=== PATIENT | female | born 2005 | race Native Hawaiian/Other Pacific Islander ===

== ENCOUNTER 2023-03-24 13:32 | Outpatient (CLI) | payer BC ==
--- NOTE | 2023-03-25 20:26 | Ultrasound Report ---
PROCEDURE: OB 1st Trimester w/TV INDICATIONS: POSITIVE TEST OUTSIDE/PRIOR DATING DATA: Last menstrual period (LMP): 01/20/2023. LMP-based estimated date of delivery (NGUYEN): 10/27/2023. First dating scan (date and location): 03/24/2023. Estimated date of delivery (NGUYEN) from first dating scan: 10/26/2023. TECHNIQUE: Real-time scanning was performed of the fetus and maternal pelvic organs, with image documentation. Endovaginal scanning was also performed to better visualize the fetus and maternal ovaries. COMPARISON: None. FINDINGS: Intrauterine gestational sac present. Embryo: There is a single live intrauterine gestation with a crown-rump length of 2.4 cm for a gesta tional age of 9 weeks, 1 day Heart rate: 180 bpm. Other: No perigestational fluid collection. Measurement variability in dating: +/- 4 weeks by LMP, +/- 7 days by mean sac diameter (use before 6 weeks gestation if crown-rump length not able to be measured), +/- 5 days by crown-rump length (6-12 weeks gestation). Maternal organs: Ovaries appear within normal limits. There is a right corpus luteal cyst which cricket ures 1.9 x 2.0 x 1.5 cm and a left ovarian follicle which measures 1.6 cm in diameter. IMPRESSION: Single live intrauterine gestation with a gestational age of 9 weeks 1 day by crown-rump length. Reviewed by: Olivia An MD on 03/25/2023 8:24 PM PST Approved by: Olivia An MD on 03/25/2023 8:24 PM PST Station ID: [id number]
== END 2023-03-24 13:33 | disposition home or self-care (01) ==
LOC: DI 13:32
PROVIDERS: ATTEND Nurse Practitioner
DX: Z34.01 Encounter for supervision of normal first pregnancy, first trimester (principal)

== ENCOUNTER 2023-04-11 14:26 | Outpatient (CLI) | payer BC ==
[2023-04-11 14:52] LABS: BASOPHILS # (AUTO) 0.1 10^3/uL (0.0-0.1); EOSINOPHILS # (AUTO) 0.1 10^3/uL (0.0-0.7); EOSINOPHILS % (AUTO) 1.2 %; HCT - HEMATOCRIT 39.8 % (37.0-47.0); LYMPHOCYTES # (AUTO) 2.8 10^3/uL (1.5-3.5); MEAN CORPUSCULAR HEMOGLOBIN 27.8 pg (27.0-31.0); MEAN CORPUSCULAR HGB CONC 32.7 g/dL (32.0-36.0); MEAN PLATELET VOLUME 9.1 fL (7.9-10.8); MONOCYTES # (AUTO) 0.9 10^3/uL (0.0-1.0); MONOCYTES % (AUTO) 8.2 %; NEUTROPHILS # (AUTO) 7.3 10^3/uL (1.5-6.6); NEUTROPHILS % (AUTO) 64.4 %; PLT - PLATELET COUNT 399 10^3/uL (130-450); RED BLOOD COUNT 4.68 10^6/uL (4.20-5.40); RED CELL DISTRIBUTION WIDTH 13.5 % (12.0-15.0); WHITE BLOOD COUNT 11.3 x10^3/uL (4.8-10.8)
[2023-04-11 16:14] LABS: BILIRUBIN,URINE NEGATIVE (NEGATIVE); GLUCOSE, URINE (UA) NEGATIVE (NEGATIVE); KETONES,URINE (UA) NEGATIVE (NEGATIVE); LEUKOCYTE ESTERASE, URINE NEGATIVE (NEGATIVE); NITRITE,URINE NEGATIVE (NEGATIVE); OCCULT BLOOD,URINE NEGATIVE (NEGATIVE); PH,URINE 6.5 PH (5.0-7.5); PROTEIN,URINE NEGATIVE (NEGATIVE); UROBILINOGEN,URINE 0.2 (NORMAL) E.U./dL (NORMAL)
[2023-04-11 16:51] LABS: CLARITY,URINE HAZY (CLEAR)
[2023-04-11 16:53] LABS: AMORPHOUS SEDIMENT,UR Few /LPF; BACTERIA,URINE Rare /HPF (None Seen); CASTS, URINE 0-2 Fine Granular /LPF; MUCUS,URINE Few Strands; RBC,URINE 0-5 /HPF (0-5); SQUAMOUS EPITHELIAL CELL,UR MOD Squamous (<= Few)
[2023-04-11 16:54] LABS: CRYSTALS,URINE 3-5 Calcium Oxalate /LPF
[2023-04-11 22:38] LABS: CHLAMYDIA TRACHOMATIS DNA NEGATIVE (NEGATIVE); NEISSERIA GONORRHOEAE DNA NEGATIVE (NEGATIVE); TRICHOMONAS VAGINALIS DNA NEGATIVE (NEGATIVE)
[2023-04-12 05:14] LABS: HBsAG SCREEN Negative (Negative); RPR Non Reactive (Non Reactive)
[2023-04-12 06:11] LABS: HCV AB Non Reactive (Non Reactive)
[2023-04-12 07:10] LABS: HIV SCREEN 4TH GENERATION Non Reactive (Non Reactive)
[2023-04-12 09:10] LABS: VARICELLA-ZOSTER AB IGG 1658 index (Immune >165)
== END 2023-04-11 14:27 | disposition home or self-care (01) ==
LOC: LAB 14:26
PROVIDERS: ATTEND Nurse Practitioner
DX: O99.891 Other specified diseases and conditions complicating pregnancy (principal); N30.00 Acute cystitis without hematuria; Z36.89 Encounter for other specified antenatal screening
CPT/HCPCS: 36415; 81001; 85025; 86592; 86762; 86787; 86803; 86850; 86900; 86901; 87086; 87340; 87389; 87491; 87591; 87661

== ENCOUNTER 2023-04-26 11:01 | Outpatient (CLI) | payer BC | END 2023-04-26 11:02 | disposition home or self-care (01) | LOC: LAB 11:01 | PROVIDERS: ATTEND Obstetrics & Gynecology | DX: Z34.00 Encounter for supervision of normal first pregnancy, unspecified trimester (principal) ==

== ENCOUNTER 2023-05-10 08:00 | Outpatient (CLI) | payer BC | END 2023-05-10 23:59 | disposition home or self-care (01) | LOC: LAB.WC 08:00 | PROVIDERS: ATTEND Obstetrics & Gynecology | DX: R30.0 Dysuria (principal) | CPT/HCPCS: 87086 ==

== ENCOUNTER 2023-06-01 23:38 | Emergency (ER) | payer BC ==
[2023-06-01 23:49] VITALS: O2SAT 98
[2023-06-02 00:01] LABS: BILIRUBIN,URINE NEGATIVE (NEGATIVE); GLUCOSE, URINE (UA) NEGATIVE (NEGATIVE); KETONES,URINE (UA) NEGATIVE (NEGATIVE); LEUKOCYTE ESTERASE, URINE MODERATE (NEGATIVE); NITRITE,URINE NEGATIVE (NEGATIVE); OCCULT BLOOD,URINE SMALL (NEGATIVE); PH,URINE 6.5 PH (5.0-7.5); PROTEIN,URINE 30 mg/dL (NEGATIVE); UROBILINOGEN,URINE 0.2 (NORMAL) E.U./dL (NORMAL)
[2023-06-02 00:16] LABS: BACTERIA,URINE Rare /HPF (None Seen); CLARITY,URINE HAZY (CLEAR); SQUAMOUS EPITHELIAL CELL,UR RARE Squamous (<= Few); WBC CLUMPS,URINE PRESENT
--- NOTE | 2023-06-02 01:02 | ED Physician Documentation ---
History of Present Illness - Stated complaint Stated Complaint: - Chief complaint Chief Complaint: UTI - History obtained from History obtained from: Patient - Additonal information Additional information: 18-year-old woman at 19wga presents with isolated dysuria denies fever, back pain, systemic symptoms PD PAST MEDICAL HISTORY - Past Medical History Past Medical History: No - Past Surgical History Past Surgical History: No - Present Medications Home Medications: Ambulatory Orders Medication Instructions Recorded Confirmed Vit No.129/Iron/Folic 1 tab PO DAILY 06/01/23 06/01/23 [ One Daily Tablet] Nitrofurantoin [Macrobid] 100 mg PO BID #10 tab 06/02/23 - Allergies Allergies/Adverse Reactions: Allergies Allergy/AdvReac Type Severity Reaction Status Date / Time No Known Drug Allergies Allergy Verified 06/01/23 23:42 - Social History Does the pt smoke?: No Smoking Status: Never smoker Does the pt drink ETOH?: No Does the pt have substance abuse?: No - Immunizations Immunizations are current?: Yes - POLST Patient has POLST: No PD ED PE NORMAL - Vitals Vital signs reviewed: Yes - General General: Alert and oriented X 3, No acute distress, Well developed/nourished - HEENT HEENT: Atraumatic, PERRL, EOMI, Moist mucous membranes, Pharynx benign - Neck Neck: Supple, no meningeal sign - Abdomen Abdomen: Non tender, Non distended - Back Back: No CVA TTP Results - Vitals Vitals: Vital Signs - 24 hr 06/01/23 23:39 Temperature 36.6 C Heart Rate 82 Respiratory 19 Rate Blood Pressure 106/63 O2 Saturation 98 Oxygen O2 Source Room air - Labs Labs: Laboratory Tests 06/01/23 23:50 Urine Color YELLOW Urine Clarity HAZY Urine pH 6.5 Ur Specific [place] 1.015 Urine Protein 30 H Urine Glucose (UA) NEGATIVE Urine Ketones NEGATIVE Urine Occult Blood SMALL H Urine Nitrite NEGATIVE Urine Bilirubin NEGATIVE Urine Urobilinogen 0.2 (NORMAL) Ur Leukocyte Esterase MODERATE H Urine RBC 6-10 H Urine WBC 11-25 H Urine WBC Clumps PRESENT Ur Squamous Epith Cells RARE Squamous Urine Bacteria Rare Urine Culture Comments INDICATED PD Medical Decision Making - ED course ED course: 18-year-old woman at 19wga presents with isolated dysuria without back pain or any other signs of pyelonephritis. UTI on urinalysis. Antibiotics sent to pharmacy. Return precautions given. She will follow-up with her MDS NURSE. heart rate 152 Departure - Departure Disposition: 01 Home, Self Care Clinical Impression: UTI (urinary tract infection) Condition: Stable Instructions: ED UTI Cystitis Female Prescriptions: Nitrofurantoin [Macrobid] 100 mg PO BID #10 tab Comments: You were seen in the emergency department for UTI. Antibiotics sent to [facility]. Please follow-up with your primary care provider and return to the emergency department if you have any new or worsening symptoms or other concerns.
[2023-06-02] MEDS: NITROFURANTOIN MACRO 100 MG CAPSULE PO STA (01:19)
[2023-06-02 01:27] VITALS: BP 100/68
== END 2023-06-02 01:20 | disposition home or self-care (01) ==
LOC: ED 23:38
DX: O23.42 Unspecified infection of urinary tract in pregnancy, second trimester (principal); N39.0 Urinary tract infection, site not specified; Z3A.19 19 weeks gestation of pregnancy
CPT/HCPCS: 81001; 87086; 99283; A9270

== ENCOUNTER 2023-06-13 07:15 | Outpatient (CLI) | payer BC ==
--- NOTE | 2023-06-13 21:42 | Ultrasound Report ---
PROCEDURE: OB Anatomy Scan INDICATIONS: SUPERVISION OF OUTSIDE/PRIOR DATING DATA: Last menstrual period (LMP): 01/20/2023. LMP-based estimated date of delivery (NGUYEN): 10/27/2023. First dating scan (date and location): 03/24/2023. Estimated date of delivery (NGUYEN) from first dating scan: 10/26/2023. The below data below was generated using the clinical NGUYEN of 10/27/2023 TECHNIQUE: Real-time scanning was performed of the fetus, with image documentation and biometric measurements. COMPARISON: OB ultrasound 03/14/2023 FINDINGS: General: A single living intrauterine gestation is present. Presentation: Variable Placenta: Placental position is anterior, without previa. Amniotic fluid index: 11.9 cm, within normal limits for gestational age. heart rate: 147 beats per minute. Maternal cervical canal: 4.7 cm long; normal length is 2.5 cm or more. biometrics: Biparietal diameter: 5.0 cm 21 weeks 0 days 67th percentile Head circumference: 18.2 cm 20 weeks 4 days 42nd percentile Abdominal circumference: 15.0 cm 20 weeks 2 days 34th percentile Femur length: 3.4 cm 20 weeks 5 days 45th percentile Estimated gestational age from initial scan: 20 weeks 4 days Composite gestational age from present scan: 20 weeks 5 days Estimated weight and percentile: 357 g 40th percentile Measurement variability in biometric dating: +/- 10 days from 12-20 weeks gestation, +/- 2 weeks from 20-30 weeks gestation, +/- 3 weeks at 30 weeks gestation or later. Anatomic survey: Neuro: Ventricles are normal at less than 10 mm. Cisterna magna is normal at 3-11 mm. Cerebellum i s normal in size and morphology. Nuchal skin fold: Normal at less than 6 mm between 14 and 20 weeks gestational age. Face: Nose and lips, facial profile are normal. Spine: No evidence for spina bifida. Heart: 4-chambered heart is present, with normal ventricular outflow tracts. Diaphragm: Diaphragm is intact. Stomach: Left-sided stomach is present. Kidneys: No hydronephrosis. Normal is less than 5 mm in 2nd trimester, less than 7 mm in 3rd trimester. Cord: 3 vessel cord has orthotopic insertion. Bladder: Normal in size. Extremities: All 4 extremities are visualized. IMPRESSION: Single live intrauterine with gestational age today of 20 weeks 5 days. Anatomy is within normal limits. Reviewed by: Cristy Sylvester MD on 06/13/2023 9:40 PM PDT Approved by: Cristy Sylvester MD on 06/13/2023 9:40 PM PDT Station ID: [id number]
== END 2023-06-13 07:16 | disposition home or self-care (01) ==
LOC: DI 07:15
PROVIDERS: ATTEND Obstetrics & Gynecology
DX: Z34.02 Encounter for supervision of normal first pregnancy, second trimester (principal)

== ENCOUNTER 2023-08-15 09:57 | Outpatient (CLI) | payer BC ==
[2023-08-15 10:19] LABS: CREATININE,URINE 99.8 mg/dL; PROTEIN/CREATININE RATIO,URINE 0.2 (<=0.2)
[2023-08-15 11:18] LABS: HCT - HEMATOCRIT 36.7 % (37.0-47.0); HGB - HEMOGLOBIN 12.3 g/dL (12.0-16.0); MEAN CORPUSCULAR HEMOGLOBIN 29.3 pg (27.0-31.0); MEAN CORPUSCULAR HGB CONC 33.5 g/dL (32.0-36.0); MEAN CORPUSCULAR VOLUME 87.4 fL (81.0-99.0); MEAN PLATELET VOLUME 9.1 fL (7.9-10.8); RED BLOOD COUNT 4.2 10^6/uL (4.20-5.40); RED CELL DISTRIBUTION WIDTH 14.1 % (12.0-15.0); WHITE BLOOD COUNT 15.4 x10^3/uL (4.8-10.8)
[2023-08-15 13:04] LABS: ESTIMATED AVERAGE GLUCOSE 94 mg/dL (70-100); HEMOGLOBIN A1c% 4.9 % (4.27-6.07)
== END 2023-08-15 09:58 | disposition home or self-care (01) ==
LOC: LAB 09:57
PROVIDERS: ATTEND Obstetrics & Gynecology
DX: O99.210 Obesity complicating pregnancy, unspecified trimester (principal)
CPT/HCPCS: 36415; 82570; 82950; 83036; 84156; 85027

== ENCOUNTER 2023-10-03 08:00 | Outpatient (CLI) | payer OTHER, MEDICAID | END 2023-10-03 23:59 | disposition home or self-care (01) | LOC: LAB.WC 08:00 | PROVIDERS: ATTEND Obstetrics & Gynecology | DX: Z36.85 Encounter for antenatal screening for Streptococcus B (principal) | CPT/HCPCS: 87081; 87797 ==

== ENCOUNTER 2023-10-17 01:02 | Inpatient (IN) | payer OTHER, MEDICAID ==
[2023-10-17 03:39] LABS: CREATININE,URINE 45.4 mg/dL; PROTEIN/CREATININE RATIO,URINE 0.5 (<=0.2)
[2023-10-17 03:43] LABS: BASOPHILS # (AUTO) 0.2 10^3/uL (0.0-0.1); BASOPHILS % (AUTO) 0.9 %; EOSINOPHILS # (AUTO) 0.2 10^3/uL (0.0-0.7); EOSINOPHILS % (AUTO) 1.3 %; HCT - HEMATOCRIT 39.7 % (37.0-47.0); LYMPHOCYTES # (AUTO) 3.1 10^3/uL (1.5-3.5); LYMPHOCYTES % (AUTO) 19.7 %; MEAN CORPUSCULAR HEMOGLOBIN 28.8 pg (27.0-31.0); MEAN CORPUSCULAR HGB CONC 32.7 g/dL (32.0-36.0); MEAN CORPUSCULAR VOLUME 87.8 fL (81.0-99.0); MEAN PLATELET VOLUME 10.1 fL (7.9-10.8); MONOCYTES # (AUTO) 1.2 10^3/uL (0.0-1.0); MONOCYTES % (AUTO) 7.8 %; NEUTROPHILS % (AUTO) 69.5 %; PLT - PLATELET COUNT 373 10^3/uL (130-450); RED BLOOD COUNT 4.52 10^6/uL (4.20-5.40); RED CELL DISTRIBUTION WIDTH 14.7 % (12.0-15.0); WHITE BLOOD COUNT 15.9 x10^3/uL (4.8-10.8)
[2023-10-17 04:00] LABS: ALBUMIN 3.4 g/dL (3.2-5.5); ALBUMIN/GLOBULIN RATIO 0.8 (1.0-2.2); BILIRUBIN,TOTAL 0.2 mg/dL (0.2-1.0); CALCIUM 9.9 mg/dL (8.5-10.3); CREATININE 0.6 mg/dL (0.6-1.3); POTASSIUM 3.9 mmol/L (3.5-4.5); TOTAL PROTEIN 7.5 g/dL (6.4-8.9)
[2023-10-17] MEDS ORDERED: lidocaine 1% 20 ML MDV ID PRN (04:20)
[2023-10-17] MEDS ORDERED: METHYLERGONOVINE 0.2 MG/ML VIAL IM PRN (04:20)
[2023-10-17] MEDS ORDERED: SODIUM CHLORIDE FLUSH 0.9% 10 ML SYRINGE IVP PRN (04:20)
[2023-10-17] MEDS ORDERED: CARBOPROST TROMETHAMINE 250 MCG/ML VIAL IM PRN (04:20)
[2023-10-17] MEDS ORDERED: OXYTOCIN 10 UNIT/ML VIAL IM PRN (04:20)
[2023-10-17] MEDS ORDERED: TRANEXAMIC ACID IN NACL 1,000 MG/100 ML BAG IV PRN (04:20)
[2023-10-17] MEDS ORDERED: miSOPROStoL 200 MCG TABLET BC PRN (04:20)
[2023-10-17] MEDS ORDERED: LACTATED RINGERS 1,000 ML ONE (04:26)
[2023-10-17] MEDS: SODIUM CHLORIDE FLUSH 0.9% 10 ML SYRINGE IVP SCH (07:42)
--- NOTE | 2023-10-17 07:51 | HISTORY & PHYSICAL EXAMINATION ---
Admit History - Visit Reason Visit Reason: Contractions - : 1 Parity: 0 Risk/History: positive: Other (Obesity) Smoking Status: Never smoker - Mother's Labs Mother's Blood Type: positive: A Mother's RH: positive: Positive GBS: positive: Group B Strep Positive Rubella Status: positive: Immune - Other Maternal History Other Maternal History: HPI: Patient is a 18-year-old at 38 weeks 4 days gestation who presents today initially for contractions. While waiting, she did not have cervical change, but did have several hours repeatedly mildly elevated blood pressures. As she was monitored over 4 hours with elevated blood pressures, decision was made to proceed with induction of labor for gestational hypertension. She has good movement. Denies loss of fluid. No GÓMEZ/BV or RUQP. No vaginal bleeding. Denies nausea and vomiting. Denies urinary urgency or dysuria. All other symptoms reviewed and were negative except per HPI. Course LMP: 01/20/2023 NGUYEN by LMP:10/27/2023 03/24/2023/9+1/C/W dates Final NGUYEN: 10/27/2023 History of anxiety/depression -Previously on fluoxetine. Discussed risks of PPD. UTI in 18 w Obesity bmi 33. labs ordered. LD-ASA started 19 weeks. Pre- Weight: 168 BMI: 33.52 Blood type: A+ Antibody: Negative CBC: PLT 399 HCT 39.8 HGB 13.0 RUB: Immune VZV: Immune HBsAg: Negative HepC: NR RPR/AB-EIA: NR HIV: NR PAP: never (only 18) GC/CT: 04/10- Negative HSV: denies Genetic testing:NIPT 04/26/2023- Negative, female , AFP ordered 05/15 Covid: vaccinated Flu: vaccinated FAS: WNL Placenta: anterior w/o previa Cord: 3VC CARSON: WNL EFW: 40th%ile 50gm OGCT: 107 A1C 4.9 3HR GTT: TDAP: 07/31 Breast Pump: 07/31 3rd trimester PLT 389 HCT 36. HBG 12.3 GBS: 10/02 positive Delivery plan: Partner Flex engaged and motivated. Contraception:Likely OCPs PMH History of anxiety, currently doing well PSH No prior surgeries OB History SH Denies tobacco, alcohol, drugs Family History Mother: Anemia Father: Diabetes, hypertension Paternal grandmother: Diabetes, stroke Allergies No known drug allergies Medications vitamins Physical exam: General: Alert, oriented, no acute distress Head: Normal cephalic atraumatic Eyes: PERRLA, extraocular motions intact. Respiratory: Normal rate of respiration. No accessory muscle use, normal respiratory effort. Cardiovascular: Regular rate and rhythm Abdomen: Gravid, nontender, nondistended Extremities: Normal range of motion Neuro: Oriented x3. Normal movements Psych: Appropriate mood and affect. Normal judgment and insight SVE: 2/70/-3 FHT: 135 bpm baseline, moderate variability, accelerations present, no decelerations. Carlyss: 3-5 minutes Labs: Platelets: 373, AST/ALT: 13/7, protein to creatinine ratio 0.5 Plan 18-year-old at 38 weeks 4 days gestation admitted for induction of labor secondary to preeclampsia that severe features 1. Preeclampsia without severe features -Possibly preeclampsia without severe features. Did have elevated protein to creatinine ratio, but moderate discharge present. Urine protein to creatinine ratio 0.5. -Discussed that gestational hypertension and preeclampsia that severe features are both managed with delivery at 37 weeks or at time of delivery. The proteinuria would not affect care. -Plan for induction of labor starting with 1 dose of misoprostol. Currently 2 cm. 2. 38 weeks gestation 3. GBS positive -Ampicillin for GBS sepsis prophylaxis 4. History of anxiety/depression -Stop fluoxetine, will monitor for depression. 5. Obesity - HPI Current [facility] 10/27/23 Gestation 38 Weeks and 4 Days 1 Para 0 Vital Signs Temperature 97.7 F 10/17/23 01:15 Heart Rate 90 10/17/23 01:15 Respiratory Rate 16 10/17/23 01:15 Blood Pressure 131/97 H 10/17/23 01:15 Temperature 97.9 F 10/17/23 05:25 Heart Rate 90 10/17/23 01:15 Respiratory Rate 16 10/17/23 01:15 Blood Pressure 131/97 H 10/17/23 01:15 O2 Saturation If not protocol: Oxygen Flow, liters/minute - NST Procedure NST Procedure Start Date 10/17/23 Start Time 01:38 Stop Time 03:24 Vibroacoustic Stimulation Used No Patient States Movement Yes Meds/Allgy - Home Medications Home Medications: Ambulatory Orders Medication Instructions Recorded Confirmed Vit No.129/Iron/Folic 1 tab PO DAILY 06/01/23 10/17/23 [ One Daily Tablet] - Allergies Allergies/Adverse Reactions: Allergies Allergy/AdvReac Type Severity Reaction Status Date / Time No Known Drug Allergies Allergy Verified 06/01/23 23:42 Physical - Abdominal Exam Vital Signs: Temp Pulse Resp BP Pulse Ox O2 Flow Rate 97.9 F 90 16 131/97 H 10/17/23 05:25 10/17/23 01:15 10/17/23 01:15 10/17/23 01:15 Plan for Labor - Plan For Labor I expect patient to be DC'd or transferred within 96 hours.: Yes
[2023-10-17] MEDS: miSOPROStoL 100 MCG TABLET VG SCH (08:26)
[2023-10-17] MEDS: LACTATED RINGERS 1,000 ML IV SCH (11:14)
[2023-10-17] MEDS ORDERED: hydrALAZINE INJ 20 MG/ML VIAL IVP PRN ×2 (11:32)
[2023-10-17] MEDS ORDERED: NIFEdipine 10 MG CAPSULE PO PRN (11:32)
[2023-10-17] MEDS ORDERED: LABETALOL 20 MG/4 ML SYRINGE IVP PRN ×3 (11:32)
[2023-10-17] MEDS ORDERED: miSOPROStoL 200 MCG TABLET PR PRN (11:32)
[2023-10-17] MEDS: fentaNYL 100 MCG/2 ML VIAL IVP PRN (11:48)
[2023-10-17] MEDS ORDERED: ROPIVACAINE 0.2% 200 MG/100 ML BAG EP ONE (12:44)
[2023-10-17] MEDS ORDERED: LIDOCAINE 2%-EPI 1:100000 20 ML MDV ONE (12:44)
[2023-10-17] MEDS: AMPICILLIN 2 GM in SODIUM CHLORIDE 0.9% MINIBAG 100 ML IV ONE (13:14)
--- NOTE | 2023-10-17 13:57 | ANESTHESIA ---
Pre-Anesthesia VS, & Labs - Diagnosis Active labor - Procedure vaginal delivery Vital Signs: Temp Pulse Resp BP Pulse Ox O2 Flow Rate 36.6 C 90 16 131/97 H 10/17/23 05:25 10/17/23 01:15 10/17/23 01:15 10/17/23 01:15 Height: 5 ft Weight (kg): 86.183 kg Body Mass Index: 37.0 BMI Classification: Obese - NPO Last Fluid Intake: clear liquids - Is Patient ?: Yes - Lab Results Current Lab Results: Laboratory Tests 10/17/23 04:35: Blood Type A POSITIVE, Antibody Screen NEGATIVE 10/17/23 03:30: Sodium 135, Potassium 3.9, Chloride 106, Carbon Dioxide 20 L, Anion Gap 9.0, BUN 8, Creatinine 0.6, Estimated GFR (MDRD) 127, Glucose 98, Calcium 9.9, Total Bilirubin 0.2, AST 13, ALT 7 L, Alkaline Phosphatase 247 H, Total Protein 7.5, Albumin 3.4, Globulin 4.1, Albumin/Globulin Ratio 0.8 L 10/17/23 03:30: WBC 15.9 H, RBC 4.52, Hgb 13.0, Hct 39.7, MCV 87.8, MCH 28.8, MCHC 32.7, RDW 14.7, Plt Count 373, MPV 10.1, Neut # (Auto) 11.0 H, Lymph # (Auto) 3.1, Dawson # (Auto) 1.2 H, Eos # (Auto) 0.2, Baso # (Auto) 0.2 H, Absolute Nucleated RBC 0.00, Nucleated RBC % 0.0 Lab results reviewed: Yes Fish Bones: 10/17/23 03:30 10/17/23 03:30 Home Medications and Allergies Active Medications Carboprost Tromethamine (Carboprost Tromethamine 250 Mcg/Ml Vial) 250 mcg IM Q15M PRN PRN Reason: Step 4: Hemorrhage protocol Fentanyl (Fentanyl 100 Mcg/2 Ml Vial) 50 mcg IVP Q1H PRN PRN Reason: Severe Pain (score 7-10) Last Admin: 10/17/23 11:48 Dose: 50 mcg Hydralazine HCl (Hydralazine Inj 20 Mg/Ml Vial) 10 mg IVP .ONCE PRN; Protocol PRN Reason: SBP> or= 160 OR DBP> or= 110 Hydralazine HCl (Hydralazine Inj 20 Mg/Ml Vial) 5 - 10 mg IVP Q20M PRN; Protoco l PRN Reason: SBP> or= 160 OR DBP> or= 110 Lactated Ringer's (Lr) 1,000 mls @ 100 mls/hr IV .Q10H [facility] Last Admin: 10/17/23 11:14 Dose: 999 mls/hr Oxytocin/Sodium Chloride (Pitocin/Sodium Chloride) 500 mls @ 999 mls/hr IV PRN PRN; Protocol PRN Reason: POST- HEMORR PREVENTION Stop: 10/22/23 04:21 Tranexamic Acid (Tranexamic 1,000 Mg/100ml-Nacl) 1,000 mg in 100 mls @ 600 mls/hr IV .ONCE PRN PRN Reason: EBL >1200mL and within 3hr Stop: 10/22/23 04:21 Ampicillin Sodium 1 gm/ Sodium (Chloride) 100 mls @ 200 mls/hr IV Q4H [facility] Labetalol HCl (Labetalol 20 Mg/4 Ml Syringe) 20 mg IVP .ONCE PRN; Protocol PRN Reason: SBP> or= 160 OR DBP> or= 110 Labetalol HCl (Labetalol 20 Mg/4 Ml Syringe) 20 - 80 mg IVP Q10M PRN; Protocol PRN Reason: SBP> or= 160 OR DBP> or= 110 Labetalol HCl (Labetalol 20 Mg/4 Ml Syringe) 20 - 40 mg IVP Q10M PRN; Protocol PRN Reason: SBP> or= 160 OR DBP> or= 110 Lidocaine HCl (Lidocaine 1% 20 Ml Mdv) 20 ml ID .ONCE PRN PRN Reason: PERINEAL REPAIR Stop: 10/22/23 04:21 Methylergonovine Maleate (Methylergonovine 0.2 Mg/Ml Vial) 0.2 mg IM .ONCE PRN PRN Reason: Step 2: Hemorrhage protocol Stop: 10/22/23 04:21 Misoprostol (Misoprostol 100 Mcg Tablet) 25 mcg VG Q4H [facility] Stop: 10/18/23 04:01 Last Admin: 10/17/23 08:26 Dose: 25 mcg Misoprostol (Misoprostol 200 Mcg Tablet) 800 mcg VA .ONCE PRN PRN Reason: Hemorrhage Misoprostol (Misoprostol 200 Mcg Tablet) 600 mcg BC .ONCE PRN PRN Reason: Step 3: Hemorrhage protocol Stop: 10/22/23 04:21 Nifedipine (Nifedipine 10 Mg Capsule) 10 - 20 mg PO Q20M PRN; Protocol PRN Reason: SBP> or= 160 OR DBP> or= 110 Oxytocin (Oxytocin 10 Unit/Ml Vial) 10 unit IM .ONCE PRN PRN Reason: Step one: If no IV access Stop: 10/22/23 04:21 Sodium Chloride (Sodium Chloride Flush 0.9% 10 Ml Syringe) 10 ml IVP 0100,0900,1700 NAY[facility] Last Admin: 10/17/23 11:17 Dose: 5 ml Sodium Chloride (Sodium Chloride Flush 0.9% 10 Ml Syringe) 10 ml IVP PRN PRN PRN Reason: NEEDED PER PROVIDER ORDERS Vit No.129/Iron/Folic [ One Daily Tablet] 1 tab PO DAILY 06/01/23 Allergies/Adverse Reactions: Allergies Allergy/AdvReac Type Severity Reaction Status Date / Time No Known Drug Allergies Allergy Verified 06/01/23 23:42 Anes History & Medical History - Anesthetic History Family history of Anesthesia Complications: Denies Family history of Malignant Hyperthermia: Denies - Medical History Cardiovascular: reports: None Pulmonary: reports: None Gastrointestinal: reports: None Urinary: reports: None Neuro: reports: None Musculoskeletal: reports: None Endocrine/Autoimmune: reports: None Blood Disorders: reports: None Skin: reports: None Smoking Status: Never smoker Psychosocial: reports: Depression History of Cancer?: No - Obstetrical History : 1 Parity: 0 Events: reports: Other (Obesity) Exam General: Alert, Oriented x3, Cooperative, No acute distress Dental: WNL Mouth Openin Fingerbreadth Neck Mobility: Normal Mallampati classification: II Thyromental Distance: 4-6 cm Mental/Cognitive Status: Alert/Oriented X3, Normal for patient Plan Anesthesia Type: Epidural Consent for Procedure(s) Verified and Reviewed: Yes Code Status: Attempt Resuscitation ASA classification: 2-Mild systemic disease Is this case an emergency?: No
--- NOTE | 2023-10-17 14:32 | PHARMACY PROGRESS NOTE ---
- Best Possible Medication History Admit Date and Time: 10/17/23 0420 Processed by: Pharmacy (Medication reconciliation completed by pharmacy stock clerk, Bailey) Medications reviewed in ED?: No Medication History completed: Yes Patient Interview: Completed Secondary Source(s): Insurance records As the person ultimately responsible for medication therapy, providers are able to order a medication from an existing home medication list in [facility] via the "Reconcile Routine" prior to Confirmation of that medication by family support specialist. Such practice is discouraged except when the physician, in their clinical judgment, deems that a medical need exists for a medication without regard to previous use.
[2023-10-17] MEDS ORDERED: AMPICILLIN 1 GM in SODIUM CHLORIDE 0.9% MINIBAG 100 ML IV SCH (15:30)
[2023-10-17] MEDS ORDERED: NALOXONE 0.4 MG/ML VIAL IVP PRN (15:41)
[2023-10-17] MEDS ORDERED: ROPIVACAINE 0.2% 200 MG/100 ML BAG EP PRN (15:41)
[2023-10-17] MEDS: OXYTOCIN/SODIUM CHLORIDE 500 ML IV PRN (15:58)
--- NOTE | 2023-10-17 16:23 | DELIVERY NOTE ---
Delivery Note - Cervical Ripening Method Cervical Ripening Method: positive: Misoprostil - Presentation Presentation: positive: Vertex - Nuchal Cord Nuchal Cord: positive: Reduced - Anesthetic Anesthetic Type: - Amniotic Fluid Description Amniotic Fluid Description: positive: Clear (At time of rupture. Meconium on baby at time of delivery.) - Laceration Laceration: positive: Vaginal - Suture Suture Type: positive: Vicryl Suture Size: positive: 3-0 - Delivery Outcome Delivery Outcome: positive: Livebirth - : positive: Placed in direct skin contact with mother, [place] used [place] sex: positive: Female - Cord Cord: positive: 3 vessels - Placenta Placenta: positive: Intact - Estimated Blood Loss Estimated Blood Loss (in cc): 300 - Post Delivery Events Post Delivery Events: positive: No post delivery events - Delivery Comments (Free Text/Narrative) Delivery Comments (Free Text/Narrative): Preoperative Diagnoses 38 weeks gestation GBS positive Preeclampsia that severe features Obesity Postoperative Diagnoses Same Delivered live matute Status post spontaneous vaginal delivery Summary Patient presented with contractions at 38 weeks 4 days gestation with contractions. She was monitored, but did not make cervical change. While being monitored, she had persistently elevated blood pressures spanning greater than 4 hours. She also to urine protein to creatinine ratio of 0.5. We decided to keep her for induction of labor at term. She was 2 cm and ricardo fairly regularly but not making change. She received 1 dose of misoprostol and progressed the rest of the day. She began having frequent variable decelerations and was checked and found to be 9 cm. Amniotomy was performed, but only a small amount of clear fluid came out at 1512 and patient was noted to be completely dilated. She started pushing at 1522. She had frequent variable decelerations while pushing but recovered between. Delivery Summary: Patient was placed in the dorsal lithotomy position. Upon maternal pushing the head was delivered atraumatically and a nuchal cord was reduced, followed by delivery of the anterior shoulder, posterior shoulder, then the remainder of the infant's body at 1558. A female was delivered with APGARS of 9 at 1 minute and 9 at 5 minutes. The was placed on its mother's chest . After the cord finished pulsating, the umbilical cord was clamped times two and cut. The placenta delivered intact with three vessel cord. Placenta was not sent to pathology. Thirty units of Pitocin were added to the IV fluid and allowed to run freely. Uterine massage was performed until uterus was deemed firm. Upon inspection of the perineum, a right labial laceration was noted and repaired with a running suture of 3-0 Vicryl. An additional [id number] stitch was needed for hemostasis. Upon re-inspection the patient was hemostatic. Uterus again massaged and found to be firm. Needle and sponge counts were correct. Patient was stable and allowed to recover in L&D room. was stable and remained in room with mother. weight is pending at this time.
[2023-10-17] MEDS ORDERED: DOCUSATE SODIUM 100 MG CAPSULE PO PRN (16:28)
[2023-10-17] MEDS ORDERED: WITCH HAZEL/GLYCERIN 1 PAD TOP PRN (16:28)
[2023-10-17] MEDS ORDERED: SIMETHICONE CHEW 80 MG TABLET PO PRN (16:28)
[2023-10-17] MEDS ORDERED: ONDANSETRON 4 MG/2 ML VIAL IVP PRN (16:28)
[2023-10-17] MEDS ORDERED: CALCIUM CARBONATE CHEW 500 MG TABLET PO PRN (16:28)
[2023-10-17] MEDS ORDERED: LACTATED RINGERS 1,000 ML IV SCH (17:00)
[2023-10-17] MEDS: IBUPROFEN 600 MG TABLET PO SCH (17:05)
[2023-10-17] MEDS: ACETAMINOPHEN 500 MG TABLET PO SCH (17:05)
[2023-10-17] MEDS: miSOPROStoL 200 MCG TABLET BC PRN (17:51)
[2023-10-18] MEDS: LOPERAMIDE 2 MG CAPSULE PO PRN (02:03)
--- NOTE | 2023-10-18 12:20 | PROVIDER PROGRESS NOTE ---
Subjective - Subjective Subjective: Subjective Patient reports she is doing well. Lochia appropriate. Denies heavy bleeding. Ambulating. Pelvic and abdominal pain well-controlled. Tolerating oral intake. Diet: Regular. Voiding without difficulty. Passing flatus. Denies BM. Patient is bonding with baby in room Breast feeding going well. Denies feeling lightheaded, dizzy or excessively fatigued. Control: OCPs Objective General: Alert, oriented, no apparent distress. Cardiovascular: Regular rate. Regular rhythm. Lungs: No increased work of breathing. Abdomen: Uterus firm. Below umbilicus. No guarding or rebound. Extremities: No pain on palpation. No cords palpated. Distal pulses intact. Assessment and Plan day 1. -Routine care -Anticipate discharge tomorrow GBS positive: Suboptimal GBS treatment prior to delivery, will continue to monitor baby for 48 hours. Objective - Vital Signs/Intake & Output Vital Signs: Vital Signs x48h Temp Pulse Resp BP Pulse Ox 10/18/23 08:21 98.1 F 88 18 131/71 H 96 10/18/23 06:13 98.1 F 110 H 18 129/84 H Intake & Output: Intake & Output 10/15/23 10/16/23 10/17/23 10/18/23 23:59 23:59 23:59 23:59 Intake Total 1108.0 Output Total 970 200 Balance 138.0 -200 - Lab Results Fish Bones: 10/17/23 03:30 10/17/23 03:30
[2023-10-18 21:17] VITALS: O2SAT 99
[2023-10-19] MEDS ORDERED: HYDROCORTISONE 25 MG SUPPOSITORY PR PRN (09:19)
[2023-10-19 09:25] VITALS: BP 126/77
[2023-10-19] MEDS: HYDROCORTISONE 1% CREAM 28 GM TUBE TOP SCH (12:27)
--- NOTE | 2023-10-19 19:04 | Labor Flowsheet ---
Labor Flowsheet Datetime Report Generated by CPN: 10/19/2023 19:04 Datetime: 10/19/2023 09:01 VITAL SIGNS NBP Sys/Britt/Mean (mmHg): 126 : 77 : 90 Pulse: 85 Datetime: 10/17/2023 18:59 COMMUNICATION Communication Comments: SBAR to RN Pineda Datetime: 10/17/2023 18:37 Epidural Procedure Other: Cath Removed; Cath Intact Datetime: 10/17/2023 17:51 Medication Comments: misoprostol 600 mcg buccal Datetime: 10/17/2023 17:28 SpO2 (%): 98 Datetime: 10/17/2023 17:00 Stage of : Recovery Datetime: 10/17/2023 16:44 Vital Sign Comments: Pt , arm bent Datetime: 10/17/2023 16:15 PAIN Pain Scale: 0 Datetime: 10/17/2023 16:11 Anesthesia Comments: LORENZO off Datetime: 10/17/2023 16:03 LaborFlag: Labor Datetime: 10/17/2023 15:58 Comments: baby girl Datetime: 10/17/2023 15:57 Contraction Comments: toco off Datetime: 10/17/2023 15:50 Patient Care Comments: Burgess d/c'd Datetime: 10/17/2023 15:45 UTERINE ACTIVITY Monitor Mode: External Frequency (min): 1-3 Quality: Moderate Duration (sec): 50-110 Pattern: Normal: <= 5 Contractions in 10 Minutes Resting Tone (Palpate): Relaxed ASSESSMENT A Monitor Mode: External US FHR Baseline Rate : 135 Accelerations: None Decelerations: Variable Category: Category II Datetime: 10/17/2023 15:35 Temperature (C): 37.0 Datetime: 10/17/2023 15:30 FHR Baseline Changes: Tachycardia Variability: Minimal - Undetectable to <=5 bpm Datetime: 10/17/2023 15:12 VAGINAL EXAM Dilatation (cm): 10.0 Effacement (%): 100 Station: 1 Exam by: Dr. Patrick Membrane Status: Ruptured Membranes Rupture Method: Artificial Amniotic Fluid Color: Clear Amniotic Fluid Amount: Scant Datetime: 10/17/2023 15:03 Patient Position/Activity: Left Lateral Datetime: 10/17/2023 15:00 Respirations: 16 Datetime: 10/17/2023 13:34 I/O Interventions: Burgess Cath Inserted Datetime: 10/17/2023 13:15 Antibiotics: Start Antibiotics; Ampicillin IV 2 Gm Datetime: 10/17/2023 13:02 Pain Location: Abdomen Pain Relief Measures: Epidural Given Datetime: 10/17/2023 12:57 Epidural Procedure: Test Dose Datetime: 10/17/2023 12:52 PROCEDURE TIME OUT Procedure Type: Epidural time out Procedure Verify: Correct Patient Identity; Correct Side and Site are Marked; Accurate Procedure Co nsent Form; Correct Patient Position; Safety Precautions Based on Patient History or Medication Use ANESTHESIA Epidural Positioning: Sitting Datetime: 10/17/2023 12:47 Pain Coping: Crying Comfort Measures: Breathing/Relaxation; Coaching; Family Support Datetime: 10/17/2023 11:48 MEDICATIONS Analgesics/Sedatives: Fentanyl (mcg) @ 50 Datetime: 10/17/2023 11:40 Pain Presence: Intermittent Pain Type: Cramping Pain Assessment Comments: Pt using nitrous Cervix, Consistency: Soft Cervix, Position: Posterior Datetime: 10/17/2023 11:30 MATERNAL ASSESSMENT Level of Consciousness: Alert DTR's/Clonus: No Clonus Headache: Denies Nausea/Vomiting: Denies RUQ Epigastric Pain: Denies Datetime: 10/17/2023 11:14 PATIENT CARE IV/Blood Work: IV Bolus Given ml @ 999 Datetime: 10/17/2023 08:26 Cervical Ripening Agents: Cytotec @ Datetime: 10/17/2023 07:30 Breath Sounds, Left: Clear and Equal Breath Sounds, Right: Clear and Equal Datetime: 10/17/2023 07:27 Temperature Route: Oral Datetime: 10/17/2023 06:30 Monitor Interventions for UA: [place] Adjusted Datetime: 10/17/2023 03:17 Vaginal Bleeding: None Datetime: 10/17/2023 01:25 Membranes Ruptured Date/Time: 10/17/2023 15:12
--- NOTE | 2023-10-23 18:43 | DISCHARGE SUMMARY ---
Discharge Summary Admit Date: 10/17/23 Discharge Date: 10/19/23 Discharging Provider: Jenn Garcia MD Code Status: Attempt Resuscitation - DIAGNOSES Admission Diagnoses: 38 weeks preeclampsia without severe features. + GBS Discharge Diagnoses with Status of Each Condition: delivered. preeclampsia resolved - HPI History of Present Illness: She came in for a labor check at 38 wks gestational age. She had elevated bps and urine protein of 0.5. + GBS. She was admitted for labor induction. - HOSPITAL COURSE Hospital Course: She received misoprostol x 1 dose and was in active labor. bp was pretty stable without treatment. Her active labor went fast and she delivered less than 4 hours after her ampicillin for gbs. Vaginal delivery without complication. baby did require bili lights so stayed one day after mom was discharged. post course with unremarkable bps. did not require magnesium as no severe features. - ALLERGIES Allergies/Adverse Reactions: Allergies Allergy/AdvReac Type Severity Reaction Status Date / Time No Known Drug Allergies Allergy Verified 06/01/23 23:42 - MEDICATIONS Home Medications: Ambulatory Orders Medication Instructions Recorded Confirmed Vit No.129/Iron/Folic 1 tab PO DAILY 06/01/23 10/17/23 [ One Daily Tablet] Acetaminophen 650 mg PO Q4HR PRN #30 ea 10/19/23 Docusate Sodium 100Mg Capsule 100 - 200 mg PO BID PRN #60 cap 10/19/23 [Colace 100Mg Capsule] Hydrocortisone/Pramoxine 30 gm RC QID #30 gm 10/19/23 [Hydrocort-Pramoxine 2.5-1% Crm] Ibuprofen [Motrin] 600 mg PO Q6H PRN #30 tab 10/19/23 - PHYSICAL EXAM AT DISCHARGE General Appearance: positive: No acute distress Respiratory: positive: No respiratory distress Cardiovascular: positive: Regular rate & rhythm Abdomen: positive: Non-tender - LABS Result Diagrams: 10/17/23 03:30 10/17/23 03:30 - FOLLOW UP Follow Up: 1 week in clinic - TIME SPENT Time Spent in Discharge (Minutes): 20
== END 2023-10-19 18:55 | disposition home or self-care (01) | DRG 807 ==
LOC: WFO 01:02 → FBP 01:04 → WFO 04:19 → FBP 04:20
PROVIDERS: ADMIT Obstetrics & Gynecology; ATTEND Obstetrics & Gynecology
PROC: 10907ZC Drainage of Amniotic Fluid, Therapeutic from Products of Conception, Via Natural or Artificial Opening (ICD-10-PCS; principal; 2023-10-17)
PROC: 10E0XZZ Delivery of Products of Conception, External Approach (ICD-10-PCS; 2023-10-17)
PROC: 3E0P7VZ Introduction of Hormone into Female Reproductive, Via Natural or Artificial Opening (ICD-10-PCS; 2023-10-17)
PROC: 0UQMXZZ Repair Vulva, External Approach (ICD-10-PCS; 2023-10-17)
DX: O14.04 Mild to moderate pre-eclampsia, complicating childbirth (principal); Z37.0 Single live birth; O99.824 Streptococcus B carrier state complicating childbirth; O77.0 Labor and delivery complicated by meconium in amniotic fluid; O69.81X0 Labor and delivery complicated by cord around neck, without compression, not applicable or unspecified; O70.0 First degree perineal laceration during delivery; O99.214 Obesity complicating childbirth; Z3A.38 38 weeks gestation of pregnancy; O76 Abnormality in fetal heart rate and rhythm complicating labor and delivery
CPT/HCPCS: 36415; 59025; 59409; 80053; 82570; 84156; 85025; 86850; 86900; 86901; 99215; A9270; J7120